=== PATIENT | male | born 1980 | race African-American/Black ===

== ENCOUNTER 2022-11-25 11:02 | Emergency (ER) | payer SELFPAY ==
[2022-11-25 12:04] LABS: Acetaminophen Less than 10.0 mcg/mL (10.0-30.0); Alcohol Less than 10 mg/dL (Less than 10); Salicylate Less than 8.0 mg/dL (15.0-30.0)
[2022-11-25] MEDS ORDERED: Haloperidol Lactate 5 MG/ML VIAL ONE (12:29)
== END 2022-11-25 13:10 | disposition home or self-care (01) ==
LOC: ERS 11:02
DX: F12.90 Cannabis use, unspecified, uncomplicated (principal); F41.9 Anxiety disorder, unspecified
CPT/HCPCS: 36415; 80307; 93005; 96372; J1630